=== PATIENT | male | born 1980 | race Two or more races ===

== ENCOUNTER 2025-03-05 21:38 | Emergency (ER) | payer BC, OTHER ==
[~2025-03-05] VITALS: Ht 175.3 cm; Wt 105.8 kg
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
--- NOTE | 2025-03-05 23:05 | DVH ---
Right lower extremity venous duplex CLINICAL HISTORY: r/o dvt COMPARISON: None TECHNIQUE: Duplex Doppler evaluation of the deep venous system of the right lower extremity from the common femoral vein to the popliteal vein including color Doppler and spectral/pulsed waveform analysis was performed. FINDINGS: The common femoral vein demonstrates appropriate compressibility and waveform variability. There is compressibility/patency of the great saphenous vein at the proximal thigh. The femoral vein demonstrates appropriate compressibility and waveform variability. The deep femoral vein demonstrates appropriate compressibility and waveform variability. The popliteal vein demonstrates appropriate compressibility and waveform variability. There is normal compressibility at the tibioperoneal trunk. IMPRESSION: No right femoropopliteal venous thrombosis.
[2025-03-05] MEDS ORDERED: CEPH500C PO (23:14)
[2025-03-06 00:18] VITALS: BP 136/92; RESP 20; TEMP 98.6; O2SAT 95
[2025-03-06 00:33] VITALS: PULSE 94
== END 2025-03-06 00:37 | disposition home or self-care (01) ==
LOC: ER 21:38 → EEVIPCON 21:38 → ER 03-06 00:37
DX: L03.116 Cellulitis of left lower limb (principal); Z79.899 Other long term (current) drug therapy
CPT/HCPCS: 93971